=== PATIENT | male | born 1975 ===

== ENCOUNTER 2017-01-09 20:33 | Emergency (ER) | payer MEDICAID, OTHER ==
[2017-01-09] MEDS ORDERED: Naproxen 550 mg Tab PO STA (21:10)
--- NOTE | 2017-01-09 21:16 | ED PDOC ---
Arrival/HPI - General Chief Complaint: Upper Extremity Problem/Injury Time Seen by Provider: 01/09/17 21:07 Historian: Patient - History of Present Illness Narrative History of Present Illness (Text): 01/09/17 21:14 A 41 year old male, whose past medical history includes cholecystitis and gastrointestinal disorder, present to the emergency department complaining of left side rib pain and left shoulder pain since earlier today. Patient reports he [place] a water park earlier today and hit into a concrete wall. Patient denies of any other injuries or complaints. no head injury no loc no nv, no sob. 01/09/17 22:33 Time/Duration: < week (earlier today) Symptom Onset: Sudden Symptom Course: Unchanged Activities at Onset: Rest, Light Context: Other (water park) Past Medical History - Provider Review Nursing Documentation Reviewed: Yes - Past History Past History: No Previous - Infectious Disease Hx of Infectious Diseases: None - Tetanus Immunization Tetanus Immunization: Unknown - Gastrointestinal Hx Gastrointestinal Disorders: Yes Hx Gall Bladder Disease: Yes - Psychiatric Hx Depression: No Hx Substance Use: No - Surgical History Hx Cholecystectomy: Yes (2006) - Anesthesia Hx Anesthesia: Yes Hx Anesthesia Reactions: No Hx Malignant Hyperthermia: No - Suicidal Assessment Feels Threatened In Home Enviroment: No Family/Social History - Physician Review Nursing Documentation Reviewed: Yes Family/Social History: No Known Family HX Smoking Status: Never Smoked Hx Alcohol Use: No Hx Substance Use: No Hx Substance Use Treatment: No Allergies/Home Meds Allergies/Adverse Reactions: Allergies No Known Allergies Allergy (Verified 10/05/16 15:19) Home Medications: Home Meds Medication Instructions Recorded Confirmed Dayquil PO PRN PRN 10/05/16 Review of Systems - Physician Review All systems were reviewed & negative as marked: Yes - Review of Systems Constitutional: absent: Fevers, Night Sweats Respiratory: absent: SOB Cardiovascular: absent: Chest Pain Gastrointestinal: absent: Abdominal Pain (left rib), Diarrhea, Nausea, Vomiting Musculoskeletal: Other (left rib pain, left shoulder pain) Physical Exam Vital Signs Reviewed: Yes Vital Signs Temp Pulse Resp BP Pulse Ox 01/09/17 20:59 98.2 F 85 20 147/95 H 99 Temperature: Afebrile Blood Pressure: Normal Pulse: Regular Respiratory Rate: Normal Appearance: Positive for: Well-Appearing Pain Distress: None Mental Status: Positive for: Alert and Oriented X 3 - Systems Exam Head: Present: Atraumatic, Normocephalic Pupils: Present: PERRL Extroacular Muscles: Present: EOMI Conjunctiva: Present: Normal Mouth: Present: Moist Mucous Membranes Neck: Present: Normal Range of Motion Respiratory/Chest: Present: Other (mild chest wall tenderness) Cardiovascular: Present: Regular Rate and Rhythm, Normal S1, S2. No: Murmurs Abdomen: Present: Normal Bowel Sounds. No: Tenderness, Distention, Peritoneal Signs Back: Present: Normal Inspection Upper Extremity: Present: Normal Inspection. No: Cyanosis, Edema Lower Extremity: Present: Normal Inspection. No: Edema Neurological: Present: GCS=15, CN II-XII Intact, Speech Normal Skin: Present: Warm, Dry, Normal Color. No: Rashes Psychiatric: Present: Alert, Oriented x 3, Normal Insight, Normal Concentration Medical Decision Making ED Course and Treatment: 01/09/17 21:27 Impression: 41 year Differential Diagnosis included but are not limited to: Plan: -- Left Rib and Chest X-Ray -- Left Shoulder X-Ray -- Anaprox -- Reassess and disposition Prior Visits: Notes and results from previous visits were reviewed. On 10/05/2016 for persistent productive cough, congestion, fever and sore throat. Patient was discharged home. Progress Notes: - RAD Interpretation Radiology Orders: 01/09/17 21:10 RIBS LEFT & PA CHEST [RAD] Stat SHOULDER LEFT [RAD] Stat - Medication Orders Current Medication Orders: Discontinued Medications Naproxen (Anaprox Ds) 550 mg PO STAT STA Stop: 01/09/17 21:11 Last Admin: 01/09/17 22:04 Dose: 550 mg - Scribe Statement The provider has reviewed the documentation as recorded by the Marcella Yo Provider Scribe Attestation: All medical record entries made by the Marcella were at my direction and personally dictated by me. I have reviewed the chart and agree that the record accurately reflects my personal performance of the history, physical exam, medical decision making, and the department course for this patient. I have also personally directed, reviewed, and agree with the discharge instructions and disposition. Disposition/Present on Arrival - Present on Arrival Any Indicators Present on Arrival: No History of DVT/PE: No History of Uncontrolled Diabetes: No Urinary Catheter: No History of Decub. Ulcer: No History Surgical Site Infection Following: None - Disposition Have Diagnosis and Disposition been Completed?: Yes Diagnosis: Shoulder strain, Rib contusion Disposition: HOME/ ROUTINE Disposition Time: 21:50 Condition: STABLE Discharge Instructions (ExitCare): Shoulder Sprain (ED), Rib Contusion (ED) Additional Instructions: return to er with worsening symptoms or concerns. please see specialsit. Prescriptions: Naproxen [Naprosyn] 500 mg PO BID PRN #14 tablet PRN Reason: Pain, Mild (1-3) Referrals: [facility] [place] [facility] [place] - Follow up with primary [facility] [Outside] - Follow up with primary Luis Figueroa MD [Staff Provider] - Follow up with primary Forms: [employer] (Mexican)
[2017-01-09 21:18] VITALS: BP 147/95; PULSE 85; RESP 20; TEMP 98.2; O2SAT 99; BMI 34.7
--- NOTE | 2017-01-10 09:58 | RAD ---
PROCEDURE: Radiographs of the Chest and Left Ribs. HISTORY: trauma COMPARISON: None available. TECHNIQUE: Frontal radiograph of the chest and multiple oblique radiographs of the left ribs were obtained. FINDINGS: LEFT RIBS: No fracture or focal lesion visualized. LUNGS: Clear. PLEURA: No pneumothorax or pleural fluid. CARDIOVASCULAR: Normal sized heart. No pulmonary vascular congestion. OTHER FINDINGS: None. IMPRESSION: Unremarkable radiographs of the chest and left ribs. No left rib fracture. Concordant results with the preliminary interpretation rendered by the emergency department physician procedure.
--- NOTE | 2017-01-10 10:20 | RAD ---
PROCEDURE: Radiographs of the Left Shoulder HISTORY: trauma COMPARISON: No prior. FINDINGS: BONES: No acute fracture JOINTS: Normal. Glenohumeral and acromioclavicular joints preserved. No osteoarthritis. SOFT TISSUES: Normal. OTHER FINDINGS: None. IMPRESSION: No acute findings related to/accounting for the clinical presentation. Concordant results with the preliminary interpretation rendered by the emergency department physician procedure.
== END 2017-01-09 22:15 | disposition home or self-care (01) ==
LOC: ED 20:33
DX: S46.912A Strain of unspecified muscle, fascia and tendon at shoulder and upper arm level, left arm, initial encounter (principal); S20.212A Contusion of left front wall of thorax, initial encounter; W22.01XA Walked into wall, initial encounter; Y93.89 Activity, other specified; Y92.831 Amusement park as the place of occurrence of the external cause